=== PATIENT | female | born 1955 | race Asian ===

== ENCOUNTER 2017-05-29 06:44 | Day surgery (SDC) | payer OTHER ==
[~2017-05-29] VITALS: Ht 157.5 cm; Wt 68.9 kg
[~2017-05-29 06:44] MED LIST: ALTACE10 M1 PO; CARVEDILOL12.5 MG PO; CHLORTHALID25 MG PO; EQL POTASSIUM595 MG PO; LEXAPRO10 MG PO; LIPITOR20 M1 PO; METFORMIN500 M1 PO; OMEPRAZOLE20 M2 PO; RANITIDINE75 M3 PO; TRULICITY0.75 MG/0. SC
[2017-05-29 09:16] VITALS: BP 102/58
== END 2017-05-29 09:10 | disposition home or self-care (01) | DRG 392 ==
LOC: ENDO 06:44 → ORM 10:45
PROVIDERS: ATTEND Internal Medicine Gastroenterology
PROC: 0DB98ZX Excision of Duodenum, Via Natural or Artificial Opening Endoscopic, Diagnostic (ICD-10-PCS; principal; 2017-05-29)
PROC: 0DB48ZX Excision of Esophagogastric Junction, Via Natural or Artificial Opening Endoscopic, Diagnostic (ICD-10-PCS; 2017-05-29)
DX: K21.9 Gastro-esophageal reflux disease without esophagitis (principal); I10 Essential (primary) hypertension; R19.7 Diarrhea, unspecified; K29.70 Gastritis, unspecified, without bleeding; K57.90 Diverticulosis of intestine, part unspecified, without perforation or abscess without bleeding; K64.8 Other hemorrhoids; K44.9 Diaphragmatic hernia without obstruction or gangrene; B18.2 Chronic viral hepatitis C; K31.9 Disease of stomach and duodenum, unspecified; K45.8 Other specified abdominal hernia without obstruction or gangrene; Z86.010 Personal history of colon polyps